=== PATIENT | male | born 1960 | race Caucasian/White ===

== ENCOUNTER 2018-07-19 00:01 | Inpatient (IN) | payer OTHER ==
[~2018-07-19] VITALS: Ht 170.2 cm; Wt 87.5 kg
[2018-07-19] MEDS ORDERED: NORVASC10 MG (00:07)
[2018-07-19] MEDS ORDERED: AVAPRO300 MG (00:07)
[2018-07-19] MEDS ORDERED: LIPITOR20 MG (00:07)
[2018-07-19] MEDS ORDERED: COSOPT PF EYE1 EACH (00:07)
[2018-07-24] MEDS ORDERED: PERCOCET 5-3251 EACH PO (09:41)
[2018-07-24] MEDS ORDERED: RECTICARE30 GM TOP (09:42)
[2018-07-24] MEDS ORDERED: POLY119PG PO (10:01)
[2018-07-24] MEDS ORDERED: SENOKOT-S TABL1 EACH PO (10:01)
[2018-07-24] MEDS ORDERED: FINASTERIDE5 MG PO (10:01)
== END 2018-07-24 11:54 | disposition home or self-care (01) | DRG 348 ==
LOC: ER 00:01 → MEDJ 09:46 → SEC-K 09:46 → MEDJ 12:07
PROVIDERS: Surgery
PROC: 30233N1 Transfusion of Nonautologous Red Blood Cells into Peripheral Vein, Percutaneous Approach (ICD-10-PCS; 2018-07-19)
PROC: 3E0T3BZ Introduction of Anesthetic Agent into Peripheral Nerves and Plexi, Percutaneous Approach (ICD-10-PCS; 2018-07-20)
PROC: 06LY0CC Occlusion of Hemorrhoidal Plexus with Extraluminal Device, Open Approach (ICD-10-PCS; principal; 2018-07-20 14:00)
PROC: BW25Y0Z Computerized Tomography (CT Scan) of Chest, Abdomen and Pelvis using Other Contrast, Unenhanced and Enhanced (ICD-10-PCS; 2018-07-23)
DX: K64.2 Third degree hemorrhoids (principal); K62.5 Hemorrhage of anus and rectum; D62 Acute posthemorrhagic anemia; I10 Essential (primary) hypertension; R33.8 Other retention of urine; K59.09 Other constipation